=== PATIENT | male | born 1955 | race Caucasian/White ===

== ENCOUNTER → 2021-11-26 | Outpatient (CLI) | payer MEDICARE, OTHER ==
[~2021-11-26] MED LIST: ADVIL200 M1 PO; AMBIEN10 MG PO; ECOTRIN81 MG PO; FLONASE ALLER15.8 ML; IBUPROFEN800 MG PO; LISINOPRIL-HCT1 EAC1 PO; MEN'S MULTIVIT1 EACH PO; MICROZIDE12.5 MG PO; NORVASC5 MG PO; PEPTO-BISM262 MG/15 PO; PRAVASTATIN SOD10 MG PO; PRILOSEC OTC20 MG PO; PRINIVIL10 MG PO; PRINIVIL20 MG PO; REVATIO 20 MG T20 MG PO; ZYRTEC10 MG PO
== END ==
LOC: KOH-I 11:15
DX: J32.0 Chronic maxillary sinusitis (principal); J34.89 Other specified disorders of nose and nasal sinuses; J34.2 Deviated nasal septum
CPT/HCPCS: 70486

== ENCOUNTER 2022-03-27 13:18 | Emergency (ER) | payer MEDICARE, OTHER | END 2022-03-27 15:14 | disposition home or self-care (01) | LOC: ER1 13:18 | DX: S61.211A Laceration without foreign body of left index finger without damage to nail, initial encounter (principal); I10 Essential (primary) hypertension; W26.8XXA Contact with other sharp object(s), not elsewhere classified, initial encounter; Y92.009 Unspecified place in unspecified non-institutional (private) residence as the place of occurrence of the external cause | CPT/HCPCS: 12031; 73130; 90471; 90714; 99283 ==